=== PATIENT | female | born 1970 | race Two or more races ===

== ENCOUNTER 2022-07-15 16:47 | Outpatient (CLI) | payer OTHER | END 2022-07-15 16:49 | disposition home or self-care (01) | LOC: SONOGRAMA 16:47 | PROVIDERS: ATTEND Pathology Anatomic Pathology & Clinical Pathology | DX: E04.2 Nontoxic multinodular goiter (principal); D44.0 Neoplasm of uncertain behavior of thyroid gland ==

== ENCOUNTER 2022-09-16 10:56 | Outpatient (CLI) | payer OTHER | END 2022-09-16 10:57 | disposition home or self-care (01) | LOC: SONOGRAMA 10:56 | PROVIDERS: ATTEND Pathology Anatomic Pathology & Clinical Pathology | DX: D44.0 Neoplasm of uncertain behavior of thyroid gland (principal); E07.9 Disorder of thyroid, unspecified; E04.9 Nontoxic goiter, unspecified ==